=== PATIENT | female | born 1930 | race Caucasian/White ===

== ENCOUNTER 2016-05-27 01:10 | Inpatient (IN) ==
[2016-05-27] MEDS ORDERED: Naloxone 0.4 MG/ML INJ IVP PRN (08:04)
[2016-05-27] MEDS ORDERED: Acetaminophen 325 MG TABLET PO PRN (08:04)
[2016-05-27] MEDS ORDERED: Ondansetron 4 MG/2 ML VIAL IVP PRN (08:04)
[2016-05-27] MEDS ORDERED: *HR* Dextrose 50 % in Water (Syg) 50 ML SYRINGE IVP PRN (08:07)
[2016-05-27] MEDS ORDERED: D5% in Water 1,000 ML IVC PRN (08:07)
[2016-05-27] MEDS ORDERED: Dextrose Gel 15 GM PO PRN ×2 (08:07)
--- NOTE | 2016-05-27 08:10 | Internal Med History&Physical ---
Date of Encounter: 05/27/16 Time of Encounter: 08:10 Assessment and Plan (1) Hip pain, right Current visit: Yes Status: Acute Possibly secodnary to fracture Per ortho, xray from facility does not show distinct fracture Follow Right hip MRI Pain control Crenshaw catheter due to non-weight bearing status DVT prophylaxis with lovenox. (2) HTN (hypertension) Current visit: Yes Status: Chronic Controlled On Nifedipine at home, will give amlodipine 10mg Obtain EKG if patient will be going to surgery Qualifiers: Hypertension type: essential hypertension Qualified Code(s): I10 - Essential (primary) hypertension (3) Diabetes mellitus Current visit: Yes Status: Chronic FS ACHS ADA and Cardiac diet Check A1C Correctional medium dose insulin for now Follow A1C Qualifiers: Diabetes mellitus type: type 2 Diabetes mellitus complication status: with unspecified complications Diabetes mellitus petroleum terminal plant operator insulin use: without petroleum terminal plant operator use Qualified Code(s): E11.8 - Type 2 diabetes mellitus with unspecified complications (4) Renal insufficiency Current visit: Yes Status: Acute Suspected, acute Patient's baseline is unknwon Cr per referral facility was 1.15 with GFR of 45 Repeat Chem here gentle hydration Obtain UA to check for proteinuria, renal USS if repeat Chem here shows renal insufficiency Avoid nephrotoxins Internal Medicine - H&P: HPI Chief complaint: Right hip pain Admitted From: Home Plans for Post Hospital Care: Home History of present illness: Ms. Corea is a 85 year old female with past medical history of hypertension , diabetes mellitus and osteoarthritis. Patient admitted from outside facility on referral for right hip fracture suspected. Patient reports a history of severe osteoarthritis of the right hip, however she has been having worsening pain in the past 24 hours following a mechanical fall 5 days ago. she reports she was initially able to bear weight and on the limb initially, however pain has been worse and she is unable to walk hence she presented to the ER at the outside facility. Paper records from outside facility reports patient presented with 10/10 pain, which was relieved with adequate analgesia, other work up showed hypokalemia and azotemia. She denies any history of kidney disease in the past. Right hip x-ray done at outside facility report suspected fracture. And she was transferred here for orthopedic evaluation. She is at bedside , aside from pain, she denies any complaints. She denies chest pain, shortness of breath. She has no cardiac history. She has had multiple surgeries in the past without any reaction to anesthesia. She has never smoked. She thinks her diabetes is adequately controlled. She denies nausea, vomiting or diarrhea. She denies dysuria, increased urinary frequency or hematuria. She denies any neurologic problems or complaints. She is and she has no advance directives. Past Med Surg Social Fam HX - Past Medical History Medical history: arthritis, cancer, diabetes, hypertension Psychiatric history: no psych history - Social History Smoking Status: Never smoker Smokeless Tobacco Status: No Alcohol use: none Drug use: none - Family History Mother Living Status: Hx Family Cardiac Disorders: Yes Father Living Status: Hx Family Cancer: Yes Internal Medicine - H&P: Meds Amaryl 4 mg PO QAM 05/27/16 [History] Aspirin 81 mg PO DAILY 05/27/16 [History] Hydrocodone-Acetamin 10-325/15 1 tab PO QID 05/27/16 [History] Metformin 1,000 mg PO BID 05/27/16 [History] Nifedipine ER 90 mg PO DAILY 05/27/16 [History] Tylenol 500 mg PO Q6HR PRN 05/27/16 [History] Zocor 40 mg PO QPM 05/27/16 [History] Allergies No Known Allergies Allergy (Verified 05/27/16 03:20) All Systems PM: A 10-system review of systems was performed and is negative for pertinent findings except as documented above in the HPI. - Constitutional Constitutional: no chills, no fever(s), no night sweats - EENT Eyes: no change in vision, no discharge, no pain, no photophobia Ears: no ear discharge, no ear pain, no tinnitus Nose, mouth and throat: no dysphagia, no nasal discharge, no neck pain, no sore throat - Cardiovascular Cardiovascular ROS IM: no chest pain, no diaphoresis, no dyspnea, no lightheadedness, no palpitations, no syncope - Respiratory Respiratory: no cough, no dyspnea, no wheezing, no excessive phlegm production - Gastrointestinal Gastrointestinal: no abdominal pain, no diarrhea, no hematemesis, no hematochezia, no melena, no nausea, no vomiting - Genitourinary Genitourinary: no change in urinary stream, no dysuria, no flank pain, no hematuria - Musculoskeletal Musculoskeletal ROS IM: as per HPI - Integumentary Integumentary IM: as per HPI - Neurological Neurological ROS: no confusion, no convulsions, no focal weakness, no numbness, no tingling, no tremor(s) - Hematologic/Lymphatic Hematologic/Lymphatic: no easy bruising - Constitutional Vitals: Temp Pulse Resp BP Pulse Ox 98.3 F 87 16 151/75 96 05/27/16 06:46 05/27/16 06:46 05/27/16 06:46 05/27/16 06:46 05/27/16 06:46 General appearance: Present: mild distress, A&O X 3, pleasant, answers questions appropriately - Head Head exam: Present: atraumatic, normocephalic - Eye Eye exam: Present: PERRL, conjuntiva pink, sclera anicteric Pupils: Present: PERRL - ENT ENT exam: Present: mucous membranes dry - Neck Neck exam general surgery: Present: supple, trachea midline. Absent: lymphadenopathy - Respiratory Respiratory exam: Present: CTAB. Absent: accessory muscle use, rales, rhonchi, wheezes - Cardiovascular Cardiovascular exam: Present: RRR, +S1, +S2. Absent: diastolic murmur, gallop, JVD, rubs, systolic murmur - GI/Abdominal GI/Abdominal exam: Present: normal bowel sounds, soft, no peritoneal signs. Absent: distended, tenderness - Extremities Exam Extremities exam: Present: normal inspection. Absent: pedal edema Additional comments: Left lower extremity essentially normal in appearance, right lower extremity slightly shorter than the left. neurovascularly intact - Neurological Exam Neurological exam: Present: alert, CN II-XII intact, oriented X3, no focal deficits. Absent: pronater drift, facial droop, speech deficit - Skin Skin exam: Present: dry, intact Internal Med - H&P Results - Labs CBC & Chem 7: 05/27/16 08:33 05/27/16 08:33
--- NOTE | 2016-05-27 08:15 | Orthopedic Consult Note ---
Date of Encounter: 05/27/16 Time of Encounter: 08:12 Assessment and Plan (1) Hip pain, right Current Visit: Yes Status: Acute I did discuss the diagnosis with the patient. She has acute right hip and thigh pain that has worsened over the last 5 days after a fall making it difficult to put weight on the right lower extremity. X-rays of the right hip, femur, and knee do not show any definite fractures. She has very significant arthritic change regarding the right hip and moderate arthritic change to the right knee. At this point my recommendation is to obtain an MRI of the right hip to evaluate for an occult fracture. The order has been placed. She can have a diabetic diet today, though she should be nonweightbearing on the right lower extremity until the results of the MRI are obtained. If there is no hip fracture, then my recommendation would be for steroid injection. I will follow up. History of Present Illness HPI: Ms. Corea is a 85 year old female who was a transfer from the [facility] emergency department because of concern for a right hip fracture. She is now here at [place] and admitted to the hospitalist. I am asked to evaluate the patient regarding the right hip. On my evaluation the patient complains of right sided thigh pain from the hip down to the knee. She indicates that she fell while getting out of bed about 5 days ago. She was able to walk without issue, however yesterday she was unable to get up and put weight down on the right lower extremity because of her pain. At baseline she is a cane assisted community ambulator. She has been treated by a doctor in [place] for knee arthritis and has had injections in both of her knees. She has not been treated for hip arthritis on the right. The patient denies any other injuries. She denies any numbness, tingling, or any other associated signs or symptoms. The pain is better at rest. She denies any headaches, neck pain, chest pain, abdominal pain, bilateral upper extremity pain, and left lower extremity pain. Past Med Surg Social Fam HX - Past Medical History Medical history: arthritis, cancer, diabetes, hypertension Psychiatric history: no psych history - Social History Smoking Status: Never smoker Smokeless Tobacco Status: No Alcohol use: none Drug use: none - Family History Mother Living Status: Hx Family Cardiac Disorders: Yes Father Living Status: Hx Family Cancer: Yes Medications and Allergies Amaryl 4 mg PO QAM 05/27/16 [History] Aspirin 81 mg PO DAILY 05/27/16 [History] Hydrocodone-Acetamin 10-325/15 1 tab PO QID 05/27/16 [History] Metformin 1,000 mg PO BID 05/27/16 [History] Nifedipine ER 90 mg PO DAILY 05/27/16 [History] Tylenol 500 mg PO Q6HR PRN 05/27/16 [History] Zocor 40 mg PO QPM 05/27/16 [History] Allergies No Known Allergies Allergy (Verified 05/27/16 03:20) All Systems Reviewed: Constitutional and musculoskeletal systems were reviewed and are negative unless otherwise stated in history of present illness. Physical Exam - Constitutional Vitals: Temp Pulse Resp BP Pulse Ox 98.3 F 87 16 151/75 96 05/27/16 06:46 05/27/16 06:46 05/27/16 06:46 05/27/16 06:46 05/27/16 06:46 Constitutional -Vitals reviewed -The patient is well developed and well nourished. -Mood is pleasant. -The patient is well groomed. Psychiatric -The patient is fully alert and oriented x 3. Respiratory: -Respiratory effort normal Abdomen: -Soft abdomen -Non tender -Non distended: Left upper extremity: -No deformities. The overlying skin is intact. No obvious signs of acute trauma. -No tenderness to palpation throughout. -No significant pain with passive motion of the shoulder, elbow, wrist, and fingers within the limits of the bed. -Able to make an "OK" sign, cross the index and long fingers, and extend the thumb. -Sensation grossly intact to light touch throughout the median, radial, and ulnar distributions. -Radial pulse is present; Fingers have good capillary refill. Right upper extremity: -No deformities. The overlying skin is intact. No obvious signs of acute trauma. -No tenderness to palpation throughout. -No significant pain with passive motion of the shoulder, elbow, wrist, and fingers within the limits of the bed. -Able to make an "OK" sign, cross the index and long fingers, and extend the thumb. -Sensation grossly intact to light touch throughout the median, radial, and ulnar distributions. -Radial pulse is present; Fingers have good capillary refill. Left lower extremity: -No deformities. The overlying skin is intact. No obvious signs of acute trauma. -No tenderness to palpation throughout. -No pain with passive motion of the hip, knee, ankle, and toes within the limits of the bed. -No pain with axial loading of the thigh. -Able to dorsiflex and plantarflex the ankle and toes. -Sensation is grossly intact to light touch throughout the sural, saphenous, superficial peroneal, and deep peroneal distributions. -Toes have good capillary refill. Right lower extremity: -No deformities. The overlying skin is intact. No obvious signs of acute trauma. -Nonspecific tenderness to palpation throughout the thigh, groin, and knee. -She does have pain with logrolling of the hip as well as motion of the knee and both joints are quite stiff. No pain with ankle or toe motion. -No pain with axial loading of the thigh. -Able to dorsiflex and plantarflex the ankle and toes. -Sensation is grossly intact to light touch throughout the sural, saphenous, superficial peroneal, and deep peroneal distributions. -Toes have good capillary refill. Results - Labs Labs: All other labs normal. - Diagnostic results Hip x-ray: image reviewed (X-ray of the right hip from the outside facility show significant arthritic change. No definite fracture.) Knee x-ray: image reviewed (X-ray of the knee from the outside institute shows arthritic changes without fracture.) Consult Discharge Plan - Plan Referrals: Caroline Sunshine DO [Primary Care Provider] -
[2016-05-27] MEDS: *HR* HYDROmorphone (PF) 1 MG/ML SYRINGE IVP PRN ×2 (08:19→14:01)
[2016-05-27 09:03] LABS: Basophils % 0.4 %; Eosinophils # 0.1 K/mcL (0.0-0.6); Eosinophils % 1.5 %; Hematocrit 37.3 % (35.3-44.9); Hemoglobin 12.6 g/dL (11.5-15.4); Immature Granulocytes % 0.2 % (0-4); Lymphocytes # 1.4 K/mcL (0.6-4.6); Lymphocytes % 29.5 %; Mean Corpuscular HGB Conc 33.8 g/dL (31.6-35.5); Mean Corpuscular Hemoglobin 31.3 pg (28.0-33.3); Mean Corpuscular Volume 92.8 fL (83.0-100.0); Mean Platelet Volume 9.6 fL (9.4-12.4); Monocytes # 0.5 K/mcL (0.0-1.3); Neutrophils # 2.7 K/mcL (1.6-8.9); Platelet Count 278 K/mcL (140-400); Red Blood Count 4.02 M/mcL (3.82-4.97); Red Cell Distribution Width 13.2 % (11.5-14.5); Segmented Neutrophils % 57.4 %
[2016-05-27 09:09] LABS: INR 1.1; Prothrombin Time 11.5 Seconds (9.4-12.1)
[2016-05-27 09:11] LABS: Activated Partial Thrombo Time 26.8 Seconds (26.0-36.0)
[2016-05-27 09:14] LABS: BUN/Creatinine Ratio 20 (6-26); Blood Urea Nitrogen 17 mg/dL (7-20); Calcium 9.6 mg/dL (8.6-10.8); Carbon Dioxide 23 mEq/L (19-29); Chloride 109 mEq/L (98-109); Glucose 80 mg/dL (70-99); Osmolality,Calculated 297 (280-300); Potassium 3.9 mEq/L (3.5-4.5); Sodium 143 mEq/L (136-145); eGFR For African Americans > 60 (> 60); eGFR For Non-African Americans > 60 (> 60)
[2016-05-27 09:16] LABS: Hemoglobin A1C 5.7 %
[2016-05-27] MEDS: amLODIPine 5 MG TABLET PO SCH (09:20)
[2016-05-27] MEDS: 0.9 % Sodium Chloride 1,000 ML IVC SCH (10:34)
[2016-05-27] MEDS: Insulin LISPRO 300 UNITS/3 ML VIAL SQ SCH ×3 (11:17→20:53)
--- NOTE | 2016-05-27 12:45 | Orthopedics Progress Note ---
Date of Encounter: 05/27/16 Time of Encounter: 12:41 - Assessment and Plan (1) Hip pain, right Current Visit: Yes Status: Acute I did discuss the diagnosis with the patient. She has acute right hip and thigh pain that has worsened over the last 5 days after a fall making it difficult to put weight on the right lower extremity. X-rays of the right hip, femur, and knee do not show any definite fractures. She has very significant arthritic change regarding the right hip and moderate arthritic change to the right knee. At this point my recommendation is to obtain an MRI of the right hip to evaluate for an occult fracture. The order has been placed. She can have a diabetic diet today, though she should be nonweightbearing on the right lower extremity until the results of the MRI are obtained. If there is no hip fracture, then my recommendation would be for steroid injection. I will follow up. Subjective Interval history: S: Resting in bed comfortably O: Afeb, VSS Exam unchanged from this AM. MRI shows Garden 1 femoral neck fracture on right. A: Right Garden 1 femoral neck fracture with end stage arthritis P: I did review the MRI of the right hip which does show a Garden 1 femoral neck fracture on the right. Typically these are fixed with percutaneous screws, however she has a significant amount of arthritis at baseline. Initially she said her hip had not bothered her, but she has been getting injections in her knees. After a long discussion with the patient as well as her son and daughter -in-law, the patient apparently has been complaining of hip and groin pain for years prior to this fall. Given these findings, my recommendation would be for total hip arthroplasty to treat both the arthritis and the femoral neck fracture. I have discussed this with my partner Dr. Johnston who will perform the hip arthroplasty. Objective Vital signs: Vital Signs Temp Pulse Resp BP Pulse Ox 05/27/16 10:43 98.2 F 93 16 147/78 95 05/27/16 06:46 98.3 F 87 16 151/75 96 05/27/16 02:10 98.0 F 82 18 177/77 96 Intake and Output 05/26/16 05/27/16 05/27/16 23:59 07:59 15:59 Other: # Urine Diapers 1 Weight 55.4 kg Blood Glucose* 194 Patient Weight 05/27/16 23:59 Weight 55.4 kg - Labs CBC & BMP: 05/27/16 08:33 05/27/16 08:33 Labs: Abnormal lab results Hemoglobin A1c 5.7 % (-5.6) H 05/27/16 08:33 Consult Discharge Plan - Plan Referrals: Bandar-Caroline Dooley DO [Primary Care Provider] -
[2016-05-27] MEDS: *HR* Morphine 2 MG/ML SYRINGE IVP PRN (20:57)
[2016-05-27] MEDS: *HR* OxyCODONE/APAP 5/325 TABLET PO PRN (23:57)
[2016-05-28] MEDS: *HR* Morphine 2 MG/ML SYRINGE IVP PRN ×3 (01:18→21:20)
[2016-05-28] MEDS: 0.9 % Sodium Chloride 1,000 ML IVC SCH ×2 (01:20→21:21)
[2016-05-28 05:45] LABS: Basophils % 0.4 %; Eosinophils # 0.1 K/mcL (0.0-0.6); Eosinophils % 1.6 %; Hematocrit 33.7 % (35.3-44.9); Hemoglobin 11.5 g/dL (11.5-15.4); Immature Granulocytes % 0.2 % (0-4); Lymphocytes # 2.1 K/mcL (0.6-4.6); Lymphocytes % 41.5 %; Mean Corpuscular HGB Conc 34.1 g/dL (31.6-35.5); Mean Corpuscular Hemoglobin 31.7 pg (28.0-33.3); Mean Corpuscular Volume 92.8 fL (83.0-100.0); Mean Platelet Volume 9.6 fL (9.4-12.4); Monocytes # 0.4 K/mcL (0.0-1.3); Monocytes % 7.9 %; Neutrophils # 2.4 K/mcL (1.6-8.9); Nucleated Red Blood Cells 0.4 /100 WBC (0); Platelet Count 239 K/mcL (140-400); Red Blood Count 3.63 M/mcL (3.82-4.97); Red Cell Distribution Width 12.7 % (11.5-14.5); Segmented Neutrophils % 48.4 %
[2016-05-28] MEDS: *HR* Enoxaparin 40 MG/0.4 ML SYRINGE SQ SCH (06:02)
[2016-05-28] MEDS: *HR* OxyCODONE/APAP 5/325 TABLET PO PRN (06:02)
[2016-05-28 06:08] LABS: BUN/Creatinine Ratio 18 (6-26); Blood Urea Nitrogen 18 mg/dL (7-20); Calcium 9.1 mg/dL (8.6-10.8); Carbon Dioxide 23 mEq/L (19-29); Chloride 107 mEq/L (98-109); Glucose 74 mg/dL (70-99); Osmolality,Calculated 289 (280-300); Sodium 139 mEq/L (136-145); eGFR For African Americans > 60 (> 60); eGFR For Non-African Americans 53 (> 60)
[2016-05-28 06:09] LABS: Potassium 3.9 mEq/L (3.5-4.5)
--- NOTE | 2016-05-28 08:33 | Orthopedics Progress Note ---
Date of Encounter: 05/28/16 Time of Encounter: 08:32 - Assessment and Plan (1) Hip pain, right Current Visit: Yes Status: Acute Subjective Interval history: S: Pain controlled to the right hip as log as she does not move too much. O: Afeb, VSS Exam unchanged from yesterday. MRI shows Garden 1 femoral neck fracture on right. A: Right Garden 1 femoral neck fracture with end stage arthritis P: Plan for right total hip replacement tomorrow with Dr. Johnston to treat the fracture and arthritis. Objective Vital signs: Vital Signs Temp Pulse Resp BP Pulse Ox 05/28/16 06:41 98.0 F 78 14 159/68 95 05/27/16 23:25 98.2 F 73 15 178/93 97 05/27/16 20:21 98.2 F 79 15 138/72 94 05/27/16 16:01 98.0 F 84 16 153/80 98 05/27/16 10:43 98.2 F 93 16 147/78 95 Intake and Output 05/27/16 05/28/16 05/28/16 23:59 07:59 15:59 Intake Total 200 / 200 1375 / 1375 Output Total 1100 / 1100 1375 / 1375 Balance -900 / -900 0 / 0 Intake: IV Fluids 1000 / 1000 0.9 % Sodium Chloride 1, 1000 / 1000 000 ML @ 60 mls/hr IVC . [id number] LESLY Rx#: [id number] Oral 200 / 200 375 / 375 Output: Urine 400 / 400 Catheter 1100 / 1100 975 / 975 Other: # Voids 1 Blood Glucose* 159 79 - Labs CBC & BMP: 05/28/16 05:30 05/28/16 05:30 Labs: Abnormal lab results RBC 3.63 M/mcL (3.82-4.97) L 05/28/16 05:30 Hct 33.7 % (35.3-44.9) L 05/28/16 05:30 Nucleated RBCs/100 WBC 0.4 /100 WBC (0) H 05/28/16 05:30 Est GFR (Non-Af Amer) 53 (> 60) L 05/28/16 05:30 Hemoglobin A1c 5.7 % (-5.6) H 05/27/16 08:33 Consult Discharge Plan - Plan Referrals: Caroline Sunshine DO [Primary Care Provider] -
[2016-05-28] MEDS: amLODIPine 5 MG TABLET PO SCH (08:41)
[2016-05-28] MEDS: Insulin LISPRO 300 UNITS/3 ML VIAL SQ SCH ×4 (08:42→21:20)
[2016-05-28] MEDS: *HR* HYDROmorphone (PF) 1 MG/ML SYRINGE IVP PRN (14:51)
--- NOTE | 2016-05-28 17:15 | Internal Med Progress Note ---
Date of Encounter: 05/28/16 Time of Encounter: 17:11 - Assessment and plan (1) Stress fracture of neck of right femur Current Visit: Yes Status: Acute Assessment and plan: Orthopedic surgery consult. IV morphine for severe pain and [place] for moderate pain. Bedrest. DVT prophylaxis with heparin. Plan for total hip arthroplasty tomorrow. Patient is medically cleared and does not require any further preoperative workup or treatment. She is at high risk for mortality and complications due to treatment with IV controlled substances for pain. (2) Essential hypertension Current Visit: Yes Status: Acute Assessment and plan: I will hold losartan and HCTZ due to elevated BUN and creatinine. Continue with diltiazem. Monitor her blood pressure. (3) Type 2 diabetes mellitus treated without insulin Current Visit: Yes Status: Acute Assessment and plan: Insulin sliding scale while in the hospital. We will check hemoglobin A1c. (4) DVT prophylaxis Current Visit: Yes Status: Acute Assessment and plan: Subcutaneous Lovenox (5) Chronic anemia Current Visit: Yes Status: Acute Assessment and plan: We will check iron studies. - Subjective Interval history: 06/07/2016: The patient fell 5 days ago, she had increasing pain in the right hip. Currently reports moderate right hip pain radiating down the right lower extremity to her toes, dull and aching. Improved with oral pain medication. She had an MRI of the hip which showed a right femoral neck stress fracture. She was admitted to our service for further workup and care. - Constitutional Vitals: Temp Pulse Resp BP Pulse Ox 98.8 F 68 16 154/79 95 05/28/16 15:00 05/28/16 15:00 05/28/16 15:00 05/28/16 15:00 05/28/16 15:00 General appearance: Present: mild distress, A&O X 3, pleasant, answers questions appropriately - Eye Eye exam: Present: PERRL, conjuntiva pink, sclera anicteric Pupils: Present: PERRL - Respiratory Respiratory exam: Present: CTAB. Absent: accessory muscle use, rales, rhonchi, wheezes - Cardiovascular Cardiovascular exam: Present: RRR, +S1, +S2. Absent: diastolic murmur, gallop, rubs, systolic murmur - GI/Abdominal GI/Abdominal exam: Present: normal bowel sounds, soft, no peritoneal signs. Absent: distended, tenderness - Extremities Exam Extremities exam: Present: warm, radial pulses palpable and symetrical. Absent : calf tenderness, cyanotic, pedal edema - Skin Skin exam: Present: dry, intact Internal Medicine: Result - Labs CBC & Chem 7: 05/28/16 05:30 05/28/16 05:30 Labs: Short CBC 05/28/16 Range/Units 05:30 WBC 4.9 (4.3-11.1) K/mcL Hgb 11.5 (11.5-15.4) g/dL Hct 33.7 L (35.3-44.9) % Plt Count 239 (140-400) K/mcL Neutrophils # 2.4 (1.6-8.9) K/mcL BMP 05/28/16 05:30 Sodium 139 Potassium 3.9 Chloride 107 Carbon Dioxide 23 BUN 18 Creatinine 1.00 Glucose 74 Calcium 9.1 - ABG Interpretation ABG results: PT/INR, D-dimer PT 11.5 Seconds (9.4-12.1) 05/27/16 08:33 Consult Discharge Plan - Plan Referrals: Bandar-Caroline Dooley DO [Primary Care Provider] -
[2016-05-28] MEDS ORDERED: *HR* LORazepam 1 MG TABLET PO PRN (17:18)
[2016-05-28] MEDS: *HR* HYDROcodone/Acet 5/325 mg TABLET PO PRN (23:24)
[2016-05-29 03:18] LABS: Basophils % 0.5 %; Eosinophils # 0.1 K/mcL (0.0-0.6); Eosinophils % 1.2 %; Hematocrit 35.8 % (35.3-44.9); Hemoglobin 12.2 g/dL (11.5-15.4); Immature Granulocytes % 0.2 % (0-4); Lymphocytes # 1.9 K/mcL (0.6-4.6); Lymphocytes % 31.6 %; Mean Corpuscular HGB Conc 34.1 g/dL (31.6-35.5); Mean Corpuscular Hemoglobin 31.2 pg (28.0-33.3); Mean Corpuscular Volume 91.6 fL (83.0-100.0); Mean Platelet Volume 9.2 fL (9.4-12.4); Monocytes # 0.5 K/mcL (0.0-1.3); Monocytes % 8.7 %; Neutrophils # 3.5 K/mcL (1.6-8.9); Platelet Count 254 K/mcL (140-400); Red Blood Count 3.91 M/mcL (3.82-4.97); Red Cell Distribution Width 12.6 % (11.5-14.5); Segmented Neutrophils % 57.8 %
[2016-05-29 03:33] LABS: % Iron Saturation 11 % (15-50); BUN/Creatinine Ratio 18 (6-26); Blood Urea Nitrogen 17 mg/dL (7-20); Calcium 9.1 mg/dL (8.6-10.8); Carbon Dioxide 27 mEq/L (19-29); Chloride 106 mEq/L (98-109); Glucose 163 mg/dL (70-99); Iron 33 mcg/dL (50-170); Magnesium 1.4 mg/dL (1.6-2.6); Osmolality,Calculated 297 (280-300); Potassium 3.5 mEq/L (3.5-4.5); Sodium 141 mEq/L (136-145); Transferrin 210 mg/dL (180-382); eGFR For African Americans > 60 (> 60); eGFR For Non-African Americans 56 (> 60)
[2016-05-29 03:53] LABS: Ferritin 36 ng/ml (5-204)
[2016-05-29] MEDS: *HR* Enoxaparin 40 MG/0.4 ML SYRINGE SQ SCH (03:58)
[2016-05-29] MEDS: *HR* Morphine 2 MG/ML SYRINGE IVP PRN ×6 (04:24→20:11)
[2016-05-29] MEDS: *HR* OxyCODONE/APAP 5/325 TABLET PO PRN (06:48)
[2016-05-29] MEDS: Insulin LISPRO 300 UNITS/3 ML VIAL SQ SCH ×2 (07:26→11:54)
[2016-05-29] MEDS: amLODIPine 5 MG TABLET PO SCH (07:26)
[2016-05-29] MEDS ORDERED: NON-FORMULARY MEDICATION 1 EACH EACH (Nifedipine [Nifedipine Er] 90 MG) PO SCH (09:00)
--- NOTE | 2016-05-29 09:01 | Internal Med Progress Note ---
Date of Encounter: 05/29/16 Time of Encounter: 08:59 - Assessment and plan (1) Stress fracture of neck of right femur Current Visit: Yes Status: Acute Assessment and plan: 05/29/2016: Nothing by mouth for right hip replacement today. Blood pressure is elevated, pain likely contributing to this. Salt load from IV fluids also playing a role. We will treat her for right hip pain with IV morphine since seen she is nothing by mouth. Orthopedic surgery consult. IV morphine for severe pain and [place] for moderate pain. Bedrest. DVT prophylaxis with heparin. Plan for total hip arthroplasty tomorrow. Patient is medically cleared and does not require any further preoperative workup or treatment. She is at high risk for mortality and complications due to treatment with IV controlled substances for pain. (2) Essential hypertension Current Visit: Yes Status: Acute Assessment and plan: 05/29/2016: Hypertension is uncontrolled today with blood pressure systolic of 195. Likely due to pain and salt load from IV fluids. I will decrease IV fluid rate to 50 mL per hour and will start IV hydralazine 10 mg and assess for response. We will continue with amlodipine per her home dose. I will hold losartan and HCTZ due to elevated BUN and creatinine. Continue with diltiazem. Monitor her blood pressure. (3) Type 2 diabetes mellitus treated without insulin Current Visit: Yes Status: Acute Assessment and plan: Insulin sliding scale while in the hospital. We will check hemoglobin A1c. (4) DVT prophylaxis Current Visit: Yes Status: Acute Assessment and plan: Subcutaneous Lovenox (5) Chronic anemia Current Visit: Yes Status: Acute Assessment and plan: 05/29/2016: Iron studies noted. Iron level and percent saturation are low. Recommend starting ferrous sulfate prior to discharge. We will check iron studies. - Subjective Interval history: 05/29/2016: She reports sharp severe right hip pain, she just received a dose of morphine with slight relief. Pain worsened by movement in bed. She is bedbound planned for hip replacement today for a stress fracture of the right femoral neck. She denies chest pain shortness of breath headache and vision changes. 06/07/2016: The patient fell 5 days ago, she had increasing pain in the right hip. Currently reports moderate right hip pain radiating down the right lower extremity to her toes, dull and aching. Improved with oral pain medication. She had an MRI of the hip which showed a right femoral neck stress fracture. She was admitted to our service for further workup and care. - Constitutional Vitals: Temp Pulse Resp BP Pulse Ox 98.0 F 66 18 195/79 97 05/29/16 07:40 05/29/16 07:40 05/29/16 07:40 05/29/16 07:40 05/29/16 07:40 General appearance: Present: mild distress, A&O X 3, pleasant, answers questions appropriately - Eye Eye exam: Present: PERRL, conjuntiva pink, sclera anicteric Pupils: Present: PERRL - Respiratory Respiratory exam: Present: CTAB. Absent: accessory muscle use, rales, rhonchi, wheezes - Cardiovascular Cardiovascular exam: Present: RRR, +S1, +S2. Absent: diastolic murmur, gallop, rubs, systolic murmur - GI/Abdominal GI/Abdominal exam: Present: normal bowel sounds, soft, no peritoneal signs. Absent: distended, tenderness - Extremities Exam Extremities exam: Present: warm, radial pulses palpable and symetrical. Absent : calf tenderness, cyanotic, pedal edema - Skin Skin exam: Present: dry, intact Internal Medicine: Result - Labs CBC & Chem 7: 05/29/16 03:08 05/29/16 03:08 Labs: Short CBC 05/29/16 Range/Units 03:08 WBC 6.1 (4.3-11.1) K/mcL Hgb 12.2 (11.5-15.4) g/dL Hct 35.8 (35.3-44.9) % Plt Count 254 (140-400) K/mcL Neutrophils # 3.5 (1.6-8.9) K/mcL BMP 05/29/16 03:08 Sodium 141 Potassium 3.5 Chloride 106 Carbon Dioxide 27 BUN 17 Creatinine 0.95 Glucose 163 H Calcium 9.1 - ABG Interpretation ABG results: PT/INR, D-dimer PT 11.5 Seconds (9.4-12.1) 05/27/16 08:33 - VTE Documentation of Mechanical Device: Venous foot pump, device Consult Discharge Plan - Plan Referrals: Bandar-Caroline Dooley DO [Primary Care Provider] -
[2016-05-29] MEDS: *HR* HYDROcodone/Acet 5/325 mg TABLET PO PRN (09:16)
[2016-05-29] MEDS ORDERED: 0.9 % Sodium Chloride 1,000 ML IVC SCH ×2 (09:21→21:11)
--- NOTE | 2016-05-29 14:44 | Orthopedics Progress Note ---
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 Johnston to treat the fracture and arthritis. Consent was reviewed and signed by patient. NPO Subjective Principal diagnosis: Left hip fracture Interval history: Patient doing well, NPO. Comfortable in bed n; A&O X3 S: Pain controlled to the right hip as log as she does not move too much. O: Afeb, VSS MRI shows femoral neck fracture on right. A: Right femoral neck fracture with end stage arthritis P: Plan for right total hip replacement tomorrow with Dr. Johnston to treat the fracture and arthritis. Objective Vital signs: Vital Signs Temp Pulse Resp BP Pulse Ox 05/29/16 14:04 97.7 F 67 18 196/74 98 05/29/16 13:25 195/73 05/29/16 11:12 97.2 F L 80 18 181/81 98 05/29/16 10:46 75 170/72 05/29/16 09:15 68 175/86 05/29/16 07:40 98.0 F 66 18 195/79 97 05/29/16 06:41 98.0 F 66 18 195/79 97 05/29/16 04:54 97.9 F 64 15 188/78 96 05/28/16 23:59 97.9 F 82 15 172/81 97 05/28/16 20:48 97.9 F 88 15 167/78 94 05/28/16 15:00 98.8 F 68 16 154/79 95 Intake and Output 05/28/16 05/29/16 05/29/16 23:59 07:59 15:59 Intake Total 1000 / 1000 Output Total 1775 / 1775 725 / 725 1200 / 1200 Balance -775 / -775 -725 / -725 -1200 / -1200 Intake: IV Fluids 1000 / 1000 0.9 % Sodium Chloride 1, 1000 / 1000 000 ML @ 60 mls/hr IVC . [id number] LESLY Rx#: [id number] Output: Catheter 1775 / 1775 725 / 725 1200 / 1200 Other: Blood Glucose* 118 102 127 - Diagnostic Results Hip x-ray: report reviewed, image reviewed - Labs CBC & BMP: 05/29/16 03:08 05/29/16 03:08 Labs: Abnormal lab results MPV 9.2 fL (9.4-12.4) L 05/29/16 03:08 Nucleated RBCs/100 WBC 0.4 /100 WBC (0) H 05/28/16 05:30 Est GFR (Non-Af Amer) 56 (> 60) L 05/29/16 03:08 Glucose 163 mg/dL (70-99) H 05/29/16 03:08 POC Glucose 118 (58-89) H 05/28/16 20:16 Hemoglobin A1c 5.7 % (-5.6) H 05/27/16 08:33 Magnesium 1.4 mg/dL (1.6-2.6) L 05/29/16 03:08 Iron 33 mcg/dL (50-170) L 05/29/16 03:08 % Saturation 11 % (15-50) L 05/29/16 03:08 - VTE Documentation of Mechanical Device: Venous foot pump, device Consult Discharge Plan - Plan Referrals: Bandar-Caroline Dooley DO [Primary Care Provider] -
[2016-05-29] MEDS ORDERED: *HR* Succinylcholine 200 MG/10 ML VIAL IVP ONE ×2 (15:08→17:21)
[2016-05-29] MEDS ORDERED: Ondansetron 4 MG/2 ML VIAL ONE ×2 (15:08→17:21)
[2016-05-29] MEDS ORDERED: *HR* FentaNYL (PF) 100 MCG/2 ML VIAL ONE ×2 (15:08→17:17)
[2016-05-29] MEDS ORDERED: Lidocaine -MPF 2% 2 ML VIAL ONE ×2 (15:08→17:21)
[2016-05-29] MEDS ORDERED: *HR* Midazolam HCl 2 MG/2 ML VIAL ONE (15:08)
[2016-05-29] MEDS ORDERED: *HR* Propofol 200 MG/20 ML VIAL IVP ONE ×2 (15:08→17:18)
--- NOTE | 2016-05-29 15:10 | Anesthesia Evaluation PreOp ---
Date of Encounter: 05/29/16 Time of Encounter: 15:07 - Past History Planned Operation: Right Total Hip Arthroplasty Cardiac History: HTN, Hyperlipidemia Pulmonary History: Denies Any Significant HX SCOURING TRAIN OPERATOR History: Denies Any Significant HX Other Medical History: Renal (CRI), Diabetes Type II Anesthesia History: No Prior Anesthetic Complications, Past Anesthesia Alcohol Use: none Drug use: none Medications and Allergies Aspirin Enteric Coated [Aspirin EC] 81 mg PO DAILY 05/27/16 [History] Glimepiride [Amaryl] 4 mg PO QAM 05/27/16 [History] HYDROcodone/Acet 10/325 mg [Ceylon 10-325 mg] 1 tab PO Q6HR PRN 05/27/16 [History ] LORazepam [Ativan] 1 mg PO BID PRN 05/27/16 [History] Metformin HCl [Glucophage] 1,000 mg PO BID 05/27/16 [History] NIFEdipine [Nifedipine ER] 90 mg PO DAILY 05/27/16 [History] Simvastatin [Zocor] 40 mg PO HS 05/27/16 [History] Allergies No Known Allergies Allergy (Verified 05/27/16 03:20) - Meds/Allergy Pre-op Review Medications Reviewed: Yes Allergies Reviewed: Yes Beta Blockers on Current Med List: No Anesthesia Results - Labs 05/29/16 03:08 05/29/16 03:08 Laboratory Tests 05/27/16 08:33 PT 11.5 INR 1.1 APTT 26.8 - Imaging EKG: report reviewed (05/29/2016 SR, NSST abnormality) Anesthesia Exam Vital Signs/O2 Sat/Glucose, Most Recent Temp Pulse Resp BP Pulse Ox 97.7 F 67 18 196/74 98 05/29/16 14:04 05/29/16 14:04 05/29/16 14:04 05/29/16 14:04 05/29/16 14:04 Blood Glucose* 127 Height: 5'6''/1.68 m Weight: 122 lbs/55.4 kg NPO (# of Hours): 8 Pain Scale: 8 Pain Scale Used: Numeric (1 - 10) - HEENT Pupil (Motor): EOMI Mallampati: II Teeth: Edentulous Denture Type: Upper: Complete, Lower: Complete Oral Opening: Greater than 3 - SCOURING TRAIN OPERATOR LOC: Oriented SCOURING TRAIN OPERATOR Motor: Normal RUE, Normal LUE, Normal RLE, Normal LLE, Normal Face SCOURING TRAIN OPERATOR Sensory: Normal: RUE, LUE, RLE, LLE, Face - Cardiac Rhythm: Regular Murmur: None - Pulmonary Breath Sounds: bilateral Clear Respiratory Effort: Symmetrical Anesthesia Assess/Plan ASA Score: 3 Modified Mellissa Scale for Level of Consciousness: Cooperative, oriented, and tranquil Anesthetic Plan: General Monitoring Plan: Standard Monitors Recovery Plan: PACU
[2016-05-29] MEDS ORDERED: Dexamethasone 4 MG/ML VIAL ONE (17:21)
[2016-05-29] MEDS ORDERED: *HR* FentaNYL (PF) 100 MCG/2 ML VIAL IVP PRN ×2 (17:30→21:11)
[2016-05-29] MEDS ORDERED: Ondansetron 4 MG/2 ML VIAL IVP ONE ×2 (17:30→21:11)
[2016-05-29] MEDS ORDERED: *HR* Labetalol 100 MG/20 ML MDV IVP PRN (19:09)
[2016-05-29] MEDS ORDERED: Ondansetron 4 MG/2 ML VIAL IVP PRN ×2 (19:09→21:11)
--- NOTE | 2016-05-29 19:12 | Orthopedic Operative Note ---
Date of procedure: 05/29/16 Pre-op diagnosis: Right femoral neck fracture, severe hip arthritis, Petrusio Post-op diagnosis: same Procedure: Procedure: Right Total Hip Replacment Estimated blood loss: 200 cc Hardware: Biomet DM Cup: 54 G7 fin cup Femoral size 12 echo full profile lateralized stem Head: -6 head with Rica Procedural Notes: Patient with nondisplaced femoral neck fracture, severe hip arthritis, hip Petrusio Operative procedure: The patient was brought to the operating room and placed on the operating room table. After general anesthesia was administered the patient was placed in the lateral decubitus position with the operative leg up. All pressure points were padded appropriately and the head was stabilized in the neutral position. The operative extremity was prepped and draped in the sterile surgical fashion patient received IV antibiotic prior to skin incision. A standard posterior approach is made to the operative hip, the incision was made through the skin and subcutaneous tissue hemostasis was obtained with Bovie cautery. Using careful sharp dissection the fascia was identified and incised exposing the external rotators. The external rotators were released off the greater trochanter and tagged with #2 FiberWire suture. The capsule was T'd open and the hip was brought into internal rotation. Patient noted to have grade 4 arthritic changes femoral head. The femoral neck cut was made at the appropriate level. An anterior capsulotomy was performed for the anterior retractor. Soft tissues removed from the acetabulum. Patient noted to have grade 4 arthritic changes acetabulum. Acetabulum was first reamed medially, and then reamed in 15 degrees of anteversion and 45 degrees off the horizontal. It was reamed up to the appropriate size 54. The appropriate-sized 54 acetabular cup was impacted in place in 15 degrees of anteversion and 45 degrees off the horizontal. This had good fit and fixation. The hip was brought back in to internal rotation and prepared with the coin box inspector followed by the canal finder followed by broaching process in 20 degrees anteversion. It was broached up to the appropriate size 12. The femoral implant was impacted in place in 20 degrees of anteversion. Trial reduction found the hip to be stable with -6 head and Rica. The trials were removed and the real implants were impacted in place. The hip was reduced, patient had apparent equal leg lengths. The hip had excellent stability with forward flexion to 90 degrees adduction of 30 degrees and internal rotation of 60 degrees. The hip had no shuck. The hips after 2 minutes with a Betadine saline solution. It was irrigated out with 2 L of pulse irrigation. The external rotators were reattached to drill holes in the greater trochanter. Fascia was closed with a running #2 PDS suture. The deep tissue was irrigated and closed deep with #1 PDS suture superficially with 0 PDS suture and skin was closed with Dermabond and skin shiraz. The patient was placed in a sterile dressing and abduction pillow. The patient was extubated and transferred to the recovery room in stable condition. Anesthesia: VELASQUEZ Surgeon: Rashid Johnston Claims Customer Service Representative: Tiffanie Moseley Condition: stable Disposition: PACU
[2016-05-29] MEDS ORDERED: *HR* Magnesium Sulfate 1 GM/2 ML VIAL ONE (19:32)
[2016-05-29] MEDS ORDERED: *HR* Labetalol 20 MG/4 ML SYRINGE IVP ONE (19:32)
[2016-05-29 20:12] LABS: Hematocrit 34.8 % (35.3-44.9); Hemoglobin 12.3 g/dL (11.5-15.4)
[2016-05-29] MEDS ORDERED: Acetaminophen IV 1,000 MG/100 ML INFUS..BTL ONE (20:35)
[2016-05-29] MEDS ORDERED: Acetaminophen IV 1,000 MG/100 ML INFUS..BTL IVPB ONE (20:40)
--- NOTE | 2016-05-29 20:55 | Anesthesia Evaluation Post Op ---
Date of Encounter: 05/29/16 Time of Encounter: 20:54 - Vital Signs Vital Signs: Vital Signs/O2 Sat/Glucose, Most Current Temp Pulse Resp BP Pulse Ox 05/29/16 20:06 98.5 F 71 24 151/134 100 05/29/16 19:56 76 24 157/96 100 05/29/16 19:46 63 24 156/63 100 05/29/16 19:36 97.5 F L 68 16 130/79 96 - Lungs Lungs: Clear Ascult./Percussion - Airway Airway: Non-obstructed - Cardiovascular Regular Rate - Mental Status Mental Status: Alert & Oriented, Answers Appropriately - Pain Pain Scale: 2 - Nausea Vomiting Nausea Vomiting: Not Present - Hydration Hydration: Ice chips - Discharge PostOp Status: Transfer Patient to floor
[2016-05-29] MEDS ORDERED: Ringers Solution, Lactated 1,000 ML ONE (20:56)
[2016-05-29] MEDS ORDERED: D5% in Water 1,000 ML IVC PRN (21:11)
[2016-05-29] MEDS ORDERED: *HR* Morphine 2 MG/ML SYRINGE IVP PRN (21:11)
[2016-05-29] MEDS ORDERED: *HR* HYDROcodone/Acet 5/325 mg TABLET PO PRN (21:11)
[2016-05-29] MEDS ORDERED: Dextrose Gel 15 GM PO PRN ×2 (21:11)
[2016-05-29] MEDS ORDERED: Temazepam 15 MG CAPSULE PO PRN (21:11)
[2016-05-29] MEDS ORDERED: *HR* LORazepam 1 MG TABLET PO PRN (21:11)
[2016-05-29] MEDS ORDERED: Ringers Solution, Lactated 1,000 ML IVC SCH (21:11)
[2016-05-29] MEDS ORDERED: MOM Conc 10 ML UD.LIQ PO PRN (21:11)
[2016-05-29] MEDS ORDERED: Sennosides 8.6 MG TABLET PO PRN (21:11)
[2016-05-29] MEDS ORDERED: *HR* Dextrose 50 % in Water (Syg) 50 ML SYRINGE IVP PRN (21:11)
[2016-05-29] MEDS ORDERED: Acetaminophen 325 MG TABLET PO PRN (21:11)
[2016-05-29] MEDS ORDERED: Naloxone 0.4 MG/ML INJ IVP PRN (21:11)
[2016-05-30] MEDS: ceFAZolin 2,000 MG in D5% in Water 100 ML IVPB SCH ×2 (02:18→08:22)
[2016-05-30] MEDS: *HR* Enoxaparin 40 MG/0.4 ML SYRINGE SQ SCH (04:40)
[2016-05-30 06:16] LABS: Hematocrit 33.5 % (35.3-44.9); Hemoglobin 11.2 g/dL (11.5-15.4)
--- NOTE | 2016-05-30 06:23 | Orthopedics Progress Note ---
Date of Encounter: 05/30/16 Time of Encounter: 06:22 Subjective Principal diagnosis: Left hip fracture Interval history: Patient was seen this morning doing well without complaints. Afebrile vital signs stable. Operative extremity: Neurovascularly intact Dressing clean dry and intact Calves nontender Assessment and plan: Continue with postoperative care Hematocrit 33 Objective Vital signs: Vital Signs Temp Pulse Resp BP Pulse Ox 05/30/16 04:29 97.8 F 71 15 155/91 99 05/30/16 00:00 97.7 F 67 14 111/61 96 05/29/16 23:24 97.6 F 70 15 128/64 97 05/29/16 23:21 98 05/29/16 22:35 97.5 F L 69 14 100/58 98 05/29/16 22:07 97.6 F 69 16 153/63 97 05/29/16 21:50 98.1 F 73 16 139/60 99 05/29/16 21:43 98.1 F 75 15 147/65 96 05/29/16 21:35 98.1 F 75 15 147/65 96 05/29/16 21:06 98.2 F 68 20 144/62 100 05/29/16 20:56 63 24 148/57 100 05/29/16 20:46 65 20 150/64 100 05/29/16 20:36 98.4 F 68 24 160/76 100 05/29/16 20:26 70 20 149/79 100 05/29/16 20:16 70 24 157/71 100 05/29/16 20:06 98.5 F 71 24 151/134 100 05/29/16 19:56 76 24 157/96 100 05/29/16 19:46 63 24 156/63 100 05/29/16 19:36 97.5 F L 68 16 130/79 96 05/29/16 14:04 97.7 F 67 18 196/74 98 05/29/16 13:25 195/73 05/29/16 11:12 97.2 F L 80 18 181/81 98 05/29/16 10:46 75 170/72 05/29/16 09:15 68 175/86 05/29/16 07:40 98.0 F 66 18 195/79 97 05/29/16 06:41 98.0 F 66 18 195/79 97 Intake and Output 05/29/16 05/29/16 05/30/16 15:59 23:59 07:59 Output Total 1400 / 1400 350 / 350 Balance -1400 / -1400 -350 / -350 Output: Urine 150 / 150 Estimated Blood Loss 200 / 200 Catheter 1400 / 1400 Other: Blood Glucose* 127 - Labs CBC & BMP: 05/30/16 05:48 05/29/16 03:08 Labs: Abnormal lab results Hgb 11.2 g/dL (11.5-15.4) L 05/30/16 05:48 Hct 33.5 % (35.3-44.9) L 05/30/16 05:48 MPV 9.2 fL (9.4-12.4) L 05/29/16 03:08 Nucleated RBCs/100 WBC 0.4 /100 WBC (0) H 05/28/16 05:30 Est GFR (Non-Af Amer) 56 (> 60) L 05/29/16 03:08 Glucose 163 mg/dL (70-99) H 05/29/16 03:08 POC Glucose 214 (58-89) H 05/29/16 21:06 Hemoglobin A1c 5.7 % (-5.6) H 05/27/16 08:33 Magnesium 1.4 mg/dL (1.6-2.6) L 05/29/16 03:08 Iron 33 mcg/dL (50-170) L 05/29/16 03:08 % Saturation 11 % (15-50) L 05/29/16 03:08 - VTE Documentation of Mechanical Device: Venous foot pump, device Consult Discharge Plan - Plan Referrals: Bandar-Caroline Dooley DO [Primary Care Provider] -
[2016-05-30] MEDS: Ascorbic Acid 500 MG TABLET PO SCH ×2 (08:21→17:38)
[2016-05-30] MEDS: amLODIPine 5 MG TABLET PO SCH (08:21)
[2016-05-30] MEDS: Multivit/Ca/Min/Fe/FA 1 TAB TABLET PO SCH (08:21)
[2016-05-30] MEDS: Aspirin Enteric Coated 81 MG Tablet PO SCH (08:22)
[2016-05-30] MEDS: *HR* OxyCODONE/APAP 5/325 TABLET PO PRN ×3 (08:23→21:42)
[2016-05-30] MEDS: Insulin LISPRO 300 UNITS/3 ML VIAL SQ SCH ×4 (08:23→20:24)
--- NOTE | 2016-05-30 08:52 | Internal Med Progress Note ---
Date of Encounter: 05/30/16 Time of Encounter: 08:49 - Assessment and plan (1) Stress fracture of neck of right femur Current Visit: Yes Status: Acute Assessment and plan: 05/30/2016: Status post right hip total arthroplasty. POD 1. continue physical therapy and occupational therapy. Pain control with Percocet and Dilaudid. Bowel regimen. Add incentive spirometry. 05/29/2016: Nothing by mouth for right hip replacement today. Blood pressure is elevated, pain likely contributing to this. Salt load from IV fluids also playing a role. We will treat her for right hip pain with IV morphine since seen she is nothing by mouth. Orthopedic surgery consult. IV morphine for severe pain and [place] for moderate pain. Bedrest. DVT prophylaxis with heparin. Plan for total hip arthroplasty tomorrow. Patient is medically cleared and does not require any further preoperative workup or treatment. She is at high risk for mortality and complications due to treatment with IV controlled substances for pain. (2) Essential hypertension Current Visit: Yes Status: Acute Assessment and plan: 05/30/2016: Blood pressure better controlled today. Continue with amlodipine. Hydralazine IV as needed for hypertension. Pain control. Stop IV fluids. 05/29/2016: Hypertension is uncontrolled today with blood pressure systolic of 195. Likely due to pain and salt load from IV fluids. I will decrease IV fluid rate to 50 mL per hour and will start IV hydralazine 10 mg and assess for response. We will continue with amlodipine per her home dose. I will hold losartan and HCTZ due to elevated BUN and creatinine. Continue with diltiazem. Monitor her blood pressure. (3) Type 2 diabetes mellitus treated without insulin Current Visit: Yes Status: Acute Assessment and plan: Insulin sliding scale while in the hospital. We will check hemoglobin A1c: 5.7 indicating adequate outpatient diabetes control. (4) DVT prophylaxis Current Visit: Yes Status: Acute Assessment and plan: Subcutaneous Lovenox 40 mg subcutaneous daily. (5) Chronic anemia Current Visit: Yes Status: Acute - Subjective Interval history: 05/30/2016: She reports severe right hip pain this morning. She is POD 1 status post right hip replacement. Pain is worse with mild mobilization as she was working with PT this morning. 05/29/2016: She reports sharp severe right hip pain, she just received a dose of morphine with slight relief. Pain worsened by movement in bed. She is bedbound planned for hip replacement today for a stress fracture of the right femoral neck. She denies chest pain shortness of breath headache and vision changes. 06/07/2016: The patient fell 5 days ago, she had increasing pain in the right hip. Currently reports moderate right hip pain radiating down the right lower extremity to her toes, dull and aching. Improved with oral pain medication. She had an MRI of the hip which showed a right femoral neck stress fracture. She was admitted to our service for further workup and care. - Constitutional Vitals: Temp Pulse Resp BP Pulse Ox 98.3 F 69 18 138/67 97 05/30/16 06:41 05/30/16 06:41 05/30/16 06:41 05/30/16 06:41 05/30/16 06:41 General appearance: Present: mild distress, A&O X 3, pleasant, answers questions appropriately - Eye Eye exam: Present: PERRL, conjuntiva pink, sclera anicteric Pupils: Present: PERRL - Respiratory Respiratory exam: Present: CTAB. Absent: accessory muscle use, rales, rhonchi, wheezes - Cardiovascular Cardiovascular exam: Present: RRR, +S1, +S2. Absent: diastolic murmur, gallop, rubs, systolic murmur - GI/Abdominal GI/Abdominal exam: Present: normal bowel sounds, soft, no peritoneal signs. Absent: distended, tenderness - Extremities Exam Extremities exam: Present: warm, radial pulses palpable and symetrical. Absent : calf tenderness, cyanotic, pedal edema Additional comments: Right hip surgical dressing clean dry and intact. 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 D/ / Melvin Michaels MD / Melvin Michaels MD Interpreting Provider: Melvin Michaels MD - VTE Documentation of Mechanical Device: Venous foot pump, device Consult Discharge Plan - Plan Referrals: Caroline Sunshine DO [Primary Care Provider] -
[2016-05-30] MEDS ORDERED: Aspirin Enteric Coated 81 MG Tablet PO SCH (09:00)
[2016-05-30] MEDS: *HR* HYDROmorphone (PF) 1 MG/ML SYRINGE IVP PRN ×3 (11:12→20:23)
--- NOTE | 2016-05-30 17:45 | Electrocardiograph Report ---
[place] [id number] Test Date: 2016-05-29 Pat Name: Lonnie Corea Department: 101 Room: [facility] Gender: F Printing Press Machinist: JAMIE : [id number] Requested By: Salas Owen Order Number: [id number] Reading MD: Mj Abarca Measurements Intervals [place] Rate: 66 P: 63 DE: 180 QRS: 27 QRSD: 92 T: 59 QT: 398 QTc: 412 Interpretive Statements SINUS RHYTHM NONSPECIFIC T-WAVE ABNORMALITY Electronically Signed On 05-30-2016 17:43:21 EDT by Mj Abarca
[2016-05-30] MEDS ORDERED: 0.9 % Sodium Chloride 500 ML IVC ONE (18:06)
[2016-05-31] MEDS: *HR* HYDROmorphone (PF) 1 MG/ML SYRINGE IVP PRN ×3 (04:26→18:32)
[2016-05-31 04:53] LABS: Basophils % 0.2 %; Eosinophils % 0.1 %; Hemoglobin 9.7 g/dL (11.5-15.4); Immature Granulocytes % 0.2 % (0-4); Lymphocytes # 1.5 K/mcL (0.6-4.6); Lymphocytes % 14.6 %; Mean Corpuscular HGB Conc 34.6 g/dL (31.6-35.5); Mean Corpuscular Hemoglobin 31.7 pg (28.0-33.3); Mean Corpuscular Volume 91.5 fL (83.0-100.0); Monocytes # 0.9 K/mcL (0.0-1.3); Monocytes % 8.5 %; Neutrophils # 7.8 K/mcL (1.6-8.9); Platelet Count 285 K/mcL (140-400); Red Blood Count 3.06 M/mcL (3.82-4.97); Segmented Neutrophils % 76.4 %
[2016-05-31 05:18] LABS: Calcium 9.3 mg/dL (8.6-10.8); Potassium 3.6 mEq/L (3.5-4.5)
[2016-05-31] MEDS: *HR* Enoxaparin 40 MG/0.4 ML SYRINGE SQ SCH (05:39)
--- NOTE | 2016-05-31 06:49 | Orthopedics Progress Note ---
Date of Encounter: 05/31/16 Time of Encounter: 06:49 Subjective Principal diagnosis: Left hip fracture Interval history: Patient was seen this morning doing well without complaints. Afebrile vital signs stable. Operative extremity: Neurovascularly intact Dressing clean dry and intact Calves nontender Assessment and plan: Continue with postoperative care Hemoglobin 9.7 with a stable for discharge Objective Vital signs: Vital Signs Temp Pulse Resp BP Pulse Ox 05/31/16 04:00 98.3 F 112 18 191/75 97 05/31/16 00:00 97.7 F 97 16 150/60 96 05/30/16 20:00 97.5 F L 93 17 182/71 99 05/30/16 14:58 97.9 F 82 16 171/63 93 05/30/16 11:06 79 16 136/71 93 05/30/16 11:05 98.1 F 79 16 136/71 93 Intake and Output 05/30/16 05/30/16 05/31/16 15:59 23:59 07:59 Intake Total 250 / 250 100 / 100 Balance 250 / 250 100 / 100 Intake: Oral 250 / 250 100 / 100 Other: # Urine Diapers 1 1 Blood Glucose* 277 142 - Labs CBC & BMP: 05/31/16 04:18 05/31/16 04:18 Labs: Abnormal lab results RBC 3.06 M/mcL (3.82-4.97) L 05/31/16 04:18 Hgb 9.7 g/dL (11.5-15.4) L D 05/31/16 04:18 Hct 28.0 % (35.3-44.9) L 05/31/16 04:18 Nucleated RBCs/100 WBC 0.4 /100 WBC (0) H 05/28/16 05:30 Sodium 135 mEq/L (136-145) L 05/31/16 04:18 BUN 25 mg/dL (7-20) H 05/31/16 04:18 Creatinine 1.26 mg/dL (0.57-1.11) H 05/31/16 04:18 Est GFR ( Amer) 49 (> 60) L 05/31/16 04:18 Est GFR (Non-Af Amer) 41 (> 60) L 05/31/16 04:18 Glucose 212 mg/dL (70-99) H 05/31/16 04:18 POC Glucose 142 (58-89) H 05/30/16 20:05 Hemoglobin A1c 5.7 % (-5.6) H 05/27/16 08:33 Magnesium 1.4 mg/dL (1.6-2.6) L 05/29/16 03:08 Iron 33 mcg/dL (50-170) L 05/29/16 03:08 % Saturation 11 % (15-50) L 05/29/16 03:08 - VTE Documentation of Mechanical Device: Venous foot pump, device Consult Discharge Plan - Plan Referrals: Bandar-Caroline Dooley DO [Primary Care Provider] -
[2016-05-31] MEDS: amLODIPine 5 MG TABLET PO SCH (07:31)
[2016-05-31] MEDS: Multivit/Ca/Min/Fe/FA 1 TAB TABLET PO SCH (07:32)
[2016-05-31] MEDS: Ascorbic Acid 500 MG TABLET PO SCH ×2 (07:32→16:51)
[2016-05-31] MEDS: Aspirin Enteric Coated 81 MG Tablet PO SCH (07:32)
[2016-05-31] MEDS: *HR* OxyCODONE/APAP 5/325 TABLET PO PRN ×3 (07:32→20:37)
[2016-05-31] MEDS: Insulin LISPRO 300 UNITS/3 ML VIAL SQ SCH ×4 (07:33→20:38)
[2016-05-31] MEDS: 0.9 % Sodium Chloride 1,000 ML IVC SCH ×2 (10:42→20:51)
--- NOTE | 2016-05-31 13:58 | Internal Med Progress Note ---
Date of Encounter: 05/31/16 Time of Encounter: 10:35 - Assessment and plan (1) Renal insufficiency Current Visit: Yes Status: Acute Assessment and plan: Patient's creatinine has worsened today to 1.26 with an elevated BUN 25. We will gently hydrate. Follow renal function closely. Moderate risk for complications. (2) Stress fracture of neck of right femur Current Visit: Yes Status: Acute Assessment and plan: Status post right hip total arthroplasty postop day 2. Continue physical therapy. We will need placement to assisted facility. Pain being controlled with Percocet and Dilaudid. (3) Essential hypertension Current Visit: Yes Status: Acute Assessment and plan: Blood pressure remains elevated. On amlodipine and hydralazine IV as needed. Will start patient on carvedilol. (4) Type 2 diabetes mellitus treated without insulin Current Visit: Yes Status: Acute Assessment and plan: Blood sugars are not elevated. Continue sliding scale insulin. (5) DVT prophylaxis Current Visit: Yes Status: Acute (6) Chronic anemia Current Visit: Yes Status: Acute Assessment and plan: Hemoglobin 9.7. We will monitor closely. - Subjective Interval history: Patient is currently lying in bed. Appears comfortable. Pain is being well tolerated but with current pain medication regimen. Denies any other complaints at this time. Able to pass urine well. She apparently had some trouble yesterday but since then she has been passing urine without any problems although she is incontinent. - Constitutional Vitals: Temp Pulse Resp BP Pulse Ox 98.0 F 93 16 149/64 97 05/31/16 10:24 05/31/16 10:24 05/31/16 10:24 05/31/16 10:24 05/31/16 10:24 General appearance: Present: cooperative, mild distress, A&O X 3, pleasant, answers questions appropriately - Respiratory Respiratory exam: Present: CTAB. Absent: accessory muscle use, rales, rhonchi, wheezes - Cardiovascular Cardiovascular exam: Present: RRR, +S1, +S2. Absent: diastolic murmur, gallop, rubs, systolic murmur - Extremities Exam Extremities exam: Present: warm, radial pulses palpable and symetrical. Absent : calf tenderness, cyanotic, pedal edema Additional comments: Right hip bandaged. - Skin Skin exam: Present: dry, intact Internal Medicine: Result - Labs CBC & Chem 7: 05/31/16 04:18 05/31/16 04:18 Labs: Short CBC 05/31/16 Range/Units 04:18 WBC 10.2 D (4.3-11.1) K/mcL Hgb 9.7 L D (11.5-15.4) g/dL Hct 28.0 L (35.3-44.9) % Plt Count 285 (140-400) K/mcL Neutrophils # 7.8 (1.6-8.9) K/mcL BMP 05/31/16 04:18 Sodium 135 L Potassium 3.6 Chloride 100 Carbon Dioxide 22 BUN 25 H Creatinine 1.26 H Glucose 212 H Calcium 9.3 - ABG Interpretation ABG results: PT/INR, D-dimer PT 11.5 Seconds (9.4-12.1) 05/27/16 08:33 - VTE Documentation of Mechanical Device: Venous foot pump, device Consult Discharge Plan - Plan Referrals: Caroline Sunshine DO [Primary Care Provider] - - Attending Attestation This document has been at least partially created by [employer] recognition technology by Dr. Zhang. Errors in grammar, wording or other phrases may exist. If errors are found after the documentation is signed, they will be addressed individually in the addendum section of this document when appropriate.
[2016-06-01] MEDS: *HR* HYDROmorphone (PF) 1 MG/ML SYRINGE IVP PRN ×4 (00:17→18:14)
[2016-06-01] MEDS: *HR* OxyCODONE/APAP 5/325 TABLET PO PRN ×3 (04:09→19:24)
[2016-06-01 06:25] LABS: Basophils % 0.2 %; Eosinophils % 0.3 %; Hematocrit 22.5 % (35.3-44.9); Immature Granulocytes % 0.9 % (0-4); Lymphocytes # 0.8 K/mcL (0.6-4.6); Lymphocytes % 13.3 %; Mean Corpuscular HGB Conc 32.9 g/dL (31.6-35.5); Mean Corpuscular Hemoglobin 31.1 pg (28.0-33.3); Mean Corpuscular Volume 94.5 fL (83.0-100.0); Mean Platelet Volume 9.6 fL (9.4-12.4); Monocytes # 0.7 K/mcL (0.0-1.3); Monocytes % 11.2 %; Neutrophils # 4.4 K/mcL (1.6-8.9); Platelet Count 200 K/mcL (140-400); Red Blood Count 2.38 M/mcL (3.82-4.97); Red Cell Distribution Width 13.2 % (11.5-14.5); Segmented Neutrophils % 74.1 %
[2016-06-01 06:30] LABS: Hemoglobin 7.4 g/dL (11.5-15.4)
[2016-06-01 06:38] LABS: Alanine Aminotransferase < 6 Units/L (0-55); Albumin 2.2 g/dL (3.5-5.0); Albumin/Globulin Ratio 0.7 (1.1-2.2); Alkaline Phosphatase 57 Units/L (38-126); Aspartate Amino Transferase 30 Units/L (5-34); BUN/Creatinine Ratio 22 (6-26); Bilirubin,Total 0.4 mg/dL (0.2-1.2); Blood Urea Nitrogen 24 mg/dL (7-20); Calcium 8.6 mg/dL (8.6-10.8); Carbon Dioxide 20 mEq/L (19-29); Chloride 107 mEq/L (98-109); Globulin 3.2 g/dL (2.4-3.5); Glucose 151 mg/dL (70-99); Osmolality,Calculated 291 (280-300); Potassium 3.9 mEq/L (3.5-4.5); Sodium 137 mEq/L (136-145); Total Protein 5.4 g/dL (6.0-8.3); eGFR For African Americans 58 (> 60); eGFR For Non-African Americans 48 (> 60)
[2016-06-01] MEDS: *HR* Enoxaparin 30 MG/0.3 ML SYRINGE SQ SCH (06:42)
[2016-06-01] MEDS: 0.9 % Sodium Chloride 1,000 ML IVC SCH (06:58)
[2016-06-01] MEDS: Aspirin Enteric Coated 81 MG Tablet PO SCH (08:38)
[2016-06-01] MEDS: Insulin LISPRO 300 UNITS/3 ML VIAL SQ SCH ×4 (08:38→21:30)
[2016-06-01] MEDS: amLODIPine 5 MG TABLET PO SCH (08:38)
[2016-06-01] MEDS: Ascorbic Acid 500 MG TABLET PO SCH ×2 (08:38→16:42)
[2016-06-01] MEDS: Multivit/Ca/Min/Fe/FA 1 TAB TABLET PO SCH (08:38)
--- NOTE | 2016-06-01 09:16 | Internal Med Progress Note ---
Date of Encounter: 06/01/16 Time of Encounter: 08:50 - Assessment and plan (1) Renal insufficiency Current Visit: Yes Status: Acute Assessment and plan: Renal insufficiency only. Creatinine is improving. We will stop IV hydration. Continue to follow renal function. Avoid nephrotoxic agents. (2) Stress fracture of neck of right femur Current Visit: Yes Status: Acute Assessment and plan: Status post total right hip arthroplasty. Doing well overall. Continue physical therapy. Recommend placement to skilled rehabilitation. (3) Essential hypertension Current Visit: Yes Status: Acute Assessment and plan: Blood pressure is well controlled but intermittently elevated likely due to pain. On amlodipine and carvedilol (4) Type 2 diabetes mellitus treated without insulin Current Visit: Yes Status: Acute Assessment and plan: blood sugars are fairly controlled. on sliding scale insulin. (5) DVT prophylaxis Current Visit: Yes Status: Acute (6) Chronic anemia Current Visit: Yes Status: Acute (7) Anemia Current Visit: Yes Status: Acute Assessment and plan: Due to acute blood loss from surgery and fracture. Will transfuse 2 units packed red blood cells today is hemoglobin is 7.4. Qualifiers: Anemia type: other cause Other causes of anemia: other cause, not classified Qualified Code(s): D64.89 - Other specified anemias - Subjective Interval history: Patient complaining of pain in the right leg. Controlled with narcotic medications that the patient is receiving orally. Denies any other complaints at this time. - Constitutional Vitals: Temp Pulse Resp BP Pulse Ox 98.4 F 71 16 154/64 95 06/01/16 06:58 06/01/16 06:58 06/01/16 06:58 06/01/16 06:58 06/01/16 06:58 General appearance: Present: cooperative, mild distress, A&O X 3, pleasant, answers questions appropriately - Respiratory Respiratory exam: Present: CTAB. Absent: accessory muscle use, rales, rhonchi, wheezes - Cardiovascular Cardiovascular exam: Present: RRR, +S1, +S2. Absent: diastolic murmur, gallop, rubs, systolic murmur - GI/Abdominal GI/Abdominal exam: Present: normal bowel sounds, soft, no peritoneal signs. Absent: distended, tenderness - Extremities Exam Extremities exam: Present: tenderness (Right thigh and hip region at surgical site), warm, radial pulses palpable and symetrical. Absent: calf tenderness, cyanotic, pedal edema - Neurological Exam Neurological exam: Present: alert, oriented X3, no focal deficits. Absent: facial droop, speech deficit Internal Medicine: Result - Labs CBC & Chem 7: 06/01/16 06:10 06/01/16 06:10 Labs: Short CBC 06/01/16 Range/Units 06:10 WBC 5.9 (4.3-11.1) K/mcL Hgb 7.4 L D (11.5-15.4) g/dL Hct 22.5 L (35.3-44.9) % Plt Count 200 (140-400) K/mcL Neutrophils # 4.4 (1.6-8.9) K/mcL BMP 06/01/16 06:10 Sodium 137 Potassium 3.9 Chloride 107 Carbon Dioxide 20 BUN 24 H Creatinine 1.09 Glucose 151 H Calcium 8.6 Liver Function 06/01/16 Range/Units 06:10 Total Bilirubin 0.4 (0.2-1.2) mg/dL AST 30 (5-34) Units/L ALT < 6 (0-55) Units/L Alkaline Phosphatase 57 (38-126) Units/L Albumin 2.2 L (3.5-5.0) g/dL - ABG Interpretation ABG results: PT/INR, D-dimer PT 11.5 Seconds (9.4-12.1) 05/27/16 08:33 - VTE Documentation of Mechanical Device: Venous foot pump, device Consult Discharge Plan - Plan Referrals: Bandar-Caroline Dooley DO [Primary Care Provider] - - Attending Attestation This document has been at least partially created by [employer] recognition technology by Dr. Zhang. Errors in grammar, wording or other phrases may exist. If errors are found after the documentation is signed, they will be addressed individually in the addendum section of this document when appropriate.
[2016-06-01] MEDS ORDERED: 0.9 % Sodium Chloride 500 ML ONE ×2 (09:36→15:29)
[2016-06-01] MEDS ORDERED: Furosemide 20 MG/2 ML VIAL IVP ONE ×2 (13:48→19:59)
[2016-06-02] MEDS: *HR* OxyCODONE/APAP 5/325 TABLET PO PRN ×2 (02:06→10:58)
[2016-06-02] MEDS: *HR* HYDROmorphone (PF) 1 MG/ML SYRINGE IVP PRN ×3 (04:48→13:19)
[2016-06-02 05:16] LABS: Basophils % 0.3 %; Eosinophils % 0.5 %; Hematocrit 33.8 % (35.3-44.9); Immature Granulocytes % 0.4 % (0-4); Lymphocytes # 0.8 K/mcL (0.6-4.6); Lymphocytes % 10.6 %; Mean Corpuscular HGB Conc 33.1 g/dL (31.6-35.5); Mean Corpuscular Hemoglobin 29.5 pg (28.0-33.3); Mean Corpuscular Volume 88.9 fL (83.0-100.0); Mean Platelet Volume 9.7 fL (9.4-12.4); Monocytes # 0.7 K/mcL (0.0-1.3); Monocytes % 9.2 %; Neutrophils # 5.9 K/mcL (1.6-8.9); Platelet Count 234 K/mcL (140-400); Red Cell Distribution Width 14.9 % (11.5-14.5)
[2016-06-02 05:19] LABS: Hemoglobin 11.2 g/dL (11.5-15.4)
[2016-06-02] MEDS: *HR* Enoxaparin 30 MG/0.3 ML SYRINGE SQ SCH (06:06)
[2016-06-02] MEDS: Insulin LISPRO 300 UNITS/3 ML VIAL SQ SCH ×2 (08:39→10:59)
[2016-06-02] MEDS: amLODIPine 5 MG TABLET PO SCH (08:41)
[2016-06-02] MEDS: Ascorbic Acid 500 MG TABLET PO SCH (08:41)
[2016-06-02] MEDS: Multivit/Ca/Min/Fe/FA 1 TAB TABLET PO SCH (08:41)
[2016-06-02] MEDS: Aspirin Enteric Coated 81 MG Tablet PO SCH (08:41)
[2016-06-02 10:59] VITALS: BP 156/53
--- NOTE | 2016-06-02 14:04 | Discharge Summary ---
Date of Encounter: 06/02/16 Time of Encounter: 09:30 - Discharge Diagnosis (1) Stress fracture of neck of right femur Priority: Primary Status: Acute (2) Renal insufficiency Priority: Secondary Status: Acute (3) Essential hypertension Priority: Secondary Status: Acute (4) Type 2 diabetes mellitus treated without insulin Priority: Secondary Status: Acute (5) DVT prophylaxis Priority: Secondary Status: Acute (6) Chronic anemia Priority: Secondary Status: Acute (7) Anemia Priority: Secondary Status: Acute Qualifiers: Anemia type: other cause Other causes of anemia: other cause, not classified Qualified Code(s): D64.89 - Other specified anemias - Discharge Medications Prescriptions: HYDROcodone/Acet 10/325 mg [[place] 10-325 mg] 1 tab PO Q6HR PRN #14 tablet PRN Reason: Pain Home Medications: Aspirin Enteric Coated [Aspirin EC] 81 mg PO DAILY 05/27/16 [History] Glimepiride [Amaryl] 4 mg PO QAM 05/27/16 [History] LORazepam [Ativan] 1 mg PO BID PRN 05/27/16 [History] Metformin HCl [Glucophage] 1,000 mg PO BID 05/27/16 [History] NIFEdipine [Nifedipine ER] 90 mg PO DAILY 05/27/16 [History] Simvastatin [Zocor] 40 mg PO HS 05/27/16 [History] Docusate [Colace] 100 mg PO BID capsule 06/02/16 [Rx] Enoxaparin [Lovenox] 30 mg SQ 0600 #7 syringe 06/02/16 [Rx] Ferrous Sulfate 325 mg PO BIDWM tablet 06/02/16 [Rx] HYDROcodone/Acet 10/325 mg [[place] 10-325 mg] 1 tab PO Q6HR PRN #14 tablet [Rx] Allergies/Adverse Reactions: Allergies No Known Allergies Allergy (Verified 05/27/16 03:20) Date of admission: 05/27/16 01:48 Primary care physician: Caroline Portillo Consults: 05/29/16 21:11 Consult to Nurse Navigator [CONS] Routine Comment: ortho navigator Consult to Occupational Therapy [CONS] Routine Comment: Evaluate, develop and implement POC Consult to Physical Therapy [CONS] Routine Comment: Evaluate, develop and implement POC Consult to Protection Engineer [CONS] Routine Reason for SW Consult: post op joint replacement RT Post Op Consult [CONS] Routine Discharging clinician: Leanna Zhang Anticipated date of discharge: 06/02/16 - Patient Status Disposition: Transfer SNF Condition: Good Functional capacity at discharge: uses cane/walker Overall status at discharge: patient is progressing back to baseline - Discharge Instructions Follow Up With: Bandar-Caroline Dooley DO [Primary Care Provider] - (In one week) Additional Instructions: Follow-up outpatient with orthopedics in 2-3 weeks - Diet and Activity Activity: as per physical therapy Diet: diabetic diet, low fat, low cholesterol, low salt diet Hospital course: Ms. 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 Patient underwent right total hip replacement here. She has been slowly recovering from this postprocedure. She did develop renal insufficiency during the course of her stay but this has now resolved. Her diabetes was treated with sliding scale insulin. She also had developed acute anemia on chronic anemia due to acute blood loss from her fracture and surgery. She received for 2 units packed red blood cells with improvement in her hemoglobin counts. Presently she is stable to be discharged to rehabilitation for physical therapy. - Time Spent with Patient Total time spent providing and/or coordinating discharge services: Greater than 30 minutes (45 min) - Constitutional Vitals: Temp Pulse Resp BP Pulse Ox 98.5 F 73 16 156/53 98 06/02/16 10:55 06/02/16 10:55 06/02/16 10:55 06/02/16 10:55 06/02/16 10:55 General appearance: Present: cooperative, mild distress, A&O X 3, pleasant, answers questions appropriately - Respiratory Respiratory exam: Present: CTAB. Absent: accessory muscle use, rales, rhonchi, wheezes - Cardiovascular Cardiovascular exam: Present: RRR, +S1, +S2. Absent: diastolic murmur, gallop, rubs, systolic murmur - Extremities Exam Extremities exam: Present: tenderness (Right lower extremity), warm, radial pulses palpable and symetrical. Absent: calf tenderness, cyanotic, pedal edema - VTE Documentation of Mechanical Device: Venous foot pump, device - Attending Attestation This document has been at least partially created by [employer] medical voice recognition technology by Dr. Zhang. Errors in grammar, wording or other phrases may exist. If errors are found after the documentation is signed, they will be addressed individually in the addendum section of this document when appropriate.
--- NOTE | 2016-06-02 14:28 | Physician Discharge Referral ---
ExtendedCare Referral Info Transfer To: SNF Provider in Charge after Transfer: PCP Institutional Level of Care: Skilled - Diagnosis (1) Stress fracture of neck of right femur Priority: Primary Status: Acute (2) Renal insufficiency Priority: Secondary Status: Acute (3) Essential hypertension Priority: Secondary Status: Acute (4) Type 2 diabetes mellitus treated without insulin Priority: Secondary Status: Acute (5) DVT prophylaxis Priority: Secondary Status: Acute (6) Chronic anemia Status: Acute (7) Anemia Priority: Secondary Status: Acute Prognosis: Fair Aware of Diagnosis: Patient, Family Aware of Prognosis: Family - Transfer Medications Prescriptions: HYDROcodone/Acet 10/325 mg [[place] 10-325 mg] 1 tab PO Q6HR PRN #14 tablet PRN Reason: Pain Home Medications: Aspirin Enteric Coated [Aspirin EC] 81 mg PO DAILY 05/27/16 [History] Glimepiride [Amaryl] 4 mg PO QAM 05/27/16 [History] LORazepam [Ativan] 1 mg PO BID PRN 05/27/16 [History] Metformin HCl [Glucophage] 1,000 mg PO BID 05/27/16 [History] NIFEdipine [Nifedipine ER] 90 mg PO DAILY 05/27/16 [History] Simvastatin [Zocor] 40 mg PO HS 05/27/16 [History] Docusate [Colace] 100 mg PO BID capsule 06/02/16 [Rx] Enoxaparin [Lovenox] 30 mg SQ 0600 #7 syringe 06/02/16 [Rx] Ferrous Sulfate 325 mg PO BIDWM tablet 06/02/16 [Rx] HYDROcodone/Acet 10/325 mg [[place] 10-325 mg] 1 tab PO Q6HR PRN #14 tablet [Rx] Allergies/Adverse Reactions: Allergies No Known Allergies Allergy (Verified 05/27/16 03:20) - Respiratory Orders Smoking Cessation: Smoking cessation has been advised. For more information, call the [place] Tobacco Quit Line at 3-707-CCNP-NOW. - Advance Directives Code Status: Full Code - Mobility Orders Ambulate (per PT) - Rehabiliation Orders Rehab Potential: Fair Rehab Orders: Evaluation for Physical Therapy, Evaluation for Occupational Therapy - Diet Orders Cardiac (and diabetic) CERTIFICATION: I certify that the transfer of the above named patient to an Extended Care Facility is necessary for the continuing treatment of the diagnosis listed. The above information is true and accurate reflection of patient's current condition. Confidential - Redisclosure prohibited without a patient's written consent.
== END 2016-06-02 15:46 | DRG 470 ==
LOC: SUATTDRO 01:48 → 3NENU 01:48
PROVIDERS: ADMIT Internal Medicine Cardiovascular Disease; ATTEND Internal Medicine